=== PATIENT | female | born 1995 | race Caucasian/White ===

== ENCOUNTER 2016-12-10 19:14 | Emergency (ER) | payer OTHER ==
[~2016-12-10] VITALS: Ht 170.2 cm; Wt 136.0 kg
--- NOTE | 2016-12-10 19:23 | EMERGENCY ROOM VISIT NOTE ---
History Report prepared by Celina: Shelli Adler Under the Supervision of: Dr. Dany Cardozo M.D. 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 The patient states that she has been drinking today. Per EMS the patient's friends called them and then left the patient. They note that she said she drank many different types of alcohol today. The patient denies any drug use, trauma, fall , or medical problems. Source of History: patient Onset: just AUTO BODY WORKER Position: other (global) Quality: other (intoxication) Timing: other (episode) Note: The patient denies any drug use, trauma, fall, or medical problems. Review of Systems The scribe's documentation has been prepared under my direction and personally reviewed by me in its entirety. I confirm that the note above accurately reflects all work, treatment, procedures, and medical decision making performed by me. Past Medical & Surgical Medical Problems: (1) No Known Active Medical Problems Old medical records were reviewed. Nurse's notes were reviewed and I agree with. Family History No pertinent family history stated. Social History Alcohol Use: occasionally Marital Status: single Housing Status: lives with roommate Occupation Status: [employer] Current/Historical Medications Unable to Obtain Active Prescriptions or Reported Meds Allergies Coded Allergies: No Known Allergies (Unverified , 12/10/16) Physical Exam Vital Signs Date Time Temp Pulse Resp B/P Pulse Ox O2 Delivery O2 Flow Rate FiO2 12/10/16 23:12 66 12/10/16 22:34 56 19 93 12/10/16 22:29 68 16 96 12/10/16 22:14 63 14 97 12/10/16 22:09 77 15 95 12/10/16 22:04 95 20 97 12/10/16 22:00 92/58 12/10/16 21:59 100 17 96 12/10/16 21:54 99 21 92 12/10/16 21:49 83 22 96 12/10/16 21:44 70 19 94 12/10/16 21:39 74 17 96 12/10/16 21:34 108 19 97 12/10/16 21:29 66 18 97 12/10/16 21:24 66 17 95 12/10/16 21:19 65 18 95 12/10/16 21:14 80 20 97 12/10/16 21:09 63 25 94 12/10/16 21:05 136/95 12/10/16 21:04 65 15 12/10/16 20:49 89 13 89 12/10/16 20:44 80 15 94 12/10/16 20:39 83 25 95 12/10/16 20:34 67 22 96 12/10/16 20:29 75 30 96 12/10/16 20:24 65 21 97 12/10/16 20:19 81 24 95 12/10/16 20:14 80 17 92 12/10/16 20:09 93 22 94 12/10/16 20:04 81 18 94 12/10/16 20:01 77 19 135/79 98 Room Air 12/10/16 20:00 135/79 12/10/16 19:59 82 19 97 12/10/16 19:54 70 18 97 12/10/16 19:49 85 21 95 12/10/16 19:44 88 18 90 12/10/16 19:40 84 12/10/16 19:31 36.8 86 18 159/115 97 Room Air Physical Exam General: Moderately intoxicated young female who smells of alcohol, has slurred speech, but answers most questions appropriately, able to ambulate. HEENT: Normal cephalic atraumatic. Pupils are equal round and reactive to light. Extraocular movements are intact. Oropharynx is pink with moist mucous membranes. No swelling of the mouth lips or tongue. Neck: Supple with a midline trachea. No meningeal signs or stiffness, no JVD or bruits. No Stridor. Chest: Clear to auscultation bilaterally. No wheezes or rhonchi. No increased work of breathing. Heart: regular rate and rhythm. Abdomen: Soft nontender, nondistended without rebound guarding or rigidity. Extremities: No cyanosis clubbing or edema. No calf tenderness or assymetry Spine/Back. Non tender to palpation. No CVA tenderness Skin: Good turgor without rashes. Neurologic exam: Cranial nerves two through 12 are intact. Motor and sensation are intact and symmetrical throughout. Medical Decision & Procedures Laboratory Results Test 12/10/16 19:29 Ethyl Alcohol mg/dL 286.0 mg/dl (0-3) Laboratory studies as stated above per my review. ED Course 1914: Past medical records reviewed. The patient was evaluated in room B11A, and a complete history and physical examination were performed. 2045: I reevaluated the patient. She is resting comfortably. 2209: I reevaluated the patient and she is resting comfortably. 4: I reevaluated the patient. She would like to go home. 0033: Upon reevaluation, the patient is hemodynamically stable. I discussed the results and treatment plan with the patient. She verbalized agreement of the treatment plan. The patient was discharged home. Medical Decision Differential diagnoses include alcohol intoxication, trauma, electrolyte or metabolic imbalance, and overdose. This patient comes in as described above. She was found to be intoxicated. On exam, she is intoxicated but is able ambulate and answer questions appropriately does smell of alcohol. 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 Alcohol was elevated in the 280s and she was observed for over 5 hours in the ER. she denies any coingestions or trauma or any tonic medical problems. She was reassessed frequently. She remained stable and sobered up she was alert and oriented 3 able ambulate without difficulty drink fluids. She will be discharged with a sober friend. She was observed for multiple hours in the ER. Impression Primary Impression: Alcohol intoxication Scribe Attestation The scribe's documentation has been prepared under my direction and personally reviewed by me in its entirety. I confirm that the note above accurately reflects all work, treatment, procedures, and medical decision making performed by me. Departure Information Dispostion Home / Self-Care Prescriptions Unable to Obtain Active Prescriptions or Reported Meds Forms HOME CARE DOCUMENTATION FORM, IMPORTANT VISIT INFORMATION Patient Instructions Alcohol Intoxication - [facility], [facility]: [employer] Students and Alcohol Related Visits , My [facility] Additional Instructions Rest Drink plenty of fluids DO NOT DRINK ANY MORE ALCOHOL REturn if: any new problems or concerns
[2016-12-10 19:31] VITALS: TEMP 36.8; Ht 170.2 cm; Wt 136.0 kg
[2016-12-11 00:41] VITALS: BP 124/90; PULSE 95; O2SAT 97
== END 2016-12-11 00:42 | disposition home or self-care (01) ==
LOC: C.EDB 19:17
DX: F10.129 Alcohol abuse with intoxication, unspecified (principal)